=== PATIENT | female | born 1935 | race Caucasian/White ===

== ENCOUNTER 2017-01-29 07:34 | Emergency (ER) | payer OTHER ==
[~2017-01-29] VITALS: Ht 157.5 cm; Wt 50.0 kg
[2017-01-29 07:35] VITALS: BP 196/90; PULSE 80; RESP 18; TEMP 98.2; O2SAT 95
[2017-01-29 08:04] VITALS: RESP 16; O2SAT 96
[2017-01-29] MEDS ORDERED: SODIUM CHLORID 0.9% 500 ML INJ 500 ML IV ONE (08:15)
[2017-01-29] MEDS ORDERED: SODIUM CHLORIDE 0.9% FLUSH 10 ML FLUSH IVF PRN (08:15)
[2017-01-29 08:20] LABS: AUTOMATED NEUTROPHIL # 4.5 TH/MM3 (1.8-7.7); BASOPHIL # 0.1 TH/MM3 (0-0.2); BASOPHIL % 0.8 % (0.0-2.0); EOSINOPHIL # 0.2 TH/MM3 (0-0.4); EOSINOPHIL % 2.7 % (0.0-4.0); HEMATOCRIT 41.8 % (35.0-46.0); HEMOGLOBIN 14.7 GM/DL (11.6-15.3); LYMPH % 20.7 % (9.0-44.0); LYMPHOCYTE # 1.4 TH/MM3 (1.0-4.8); MEAN CELL VOLUME 103.8 FL (80.0-100.0); MEAN CORPUSCULAR HEMOGLOBIN 36.5 PG (27.0-34.0); MEAN CORPUSCULAR HGB CONC 35.2 % (32.0-36.0); MEAN PLATELET VOLUME 8.5 FL (7.0-11.0); MONO % 8.2 % (0.0-8.0); MONOCYTE # 0.6 TH/MM3 (0-0.9); NEUT % 67.6 % (16.0-70.0); PLATELET COUNT 376 TH/MM3 (150-450); RED BLOOD COUNT 4.03 MIL/MM3 (4.00-5.30); RED CELL DISTRIBUTION WIDTH 14.4 % (11.6-17.2); WHITE BLOOD COUNT 6.7 TH/MM3 (4.0-11.0)
[2017-01-29 08:31] LABS: INTERNATIONAL NORMALIZED RATIO 1.1 RATIO; PROTHROMBIN TIME - PATIENT 10.7 SEC (9.8-11.6)
--- NOTE | 2017-01-29 08:31 | RADRPT ---
EXAM DATE/TIME: 01/29/2017 08:10 [facility] COMPARISON: No previous studies available for comparison. INDICATIONS : Chest pain MEDICAL HISTORY : Carcinoma, colon. SURGICAL HISTORY : Colostomy. ENCOUNTER: Initial ACUITY: 1 day PAIN SCORE: 0/10 LOCATION: chest FINDINGS: There is a subtle small faint nodular density within the left upper lung field which is indeterminate . Outpatient CT of the chest may be helpful for further evaluation of this finding if clinically ginger cated. The heart is normal. The pulmonary vascular pattern is normal. The lungs are otherwise clear. Calcified breast implants are noted bilaterally. Mild degenerative changes are noted throughout the t horacic spine. CONCLUSION: 1. Subtle small faint nodular density within the left upper lung field which is indeterminate. Outpat ient CT of the chest may be helpful for further evaluation this finding if clinically indicated. 2. No acute infiltrate or pulmonary vascular congestion. 3. Mild degenerative changes throughout the thoracic spine. 1. Raj Mix MD on January 29, 2017 at 8:26 Board Certified Radiologist. This report was verified electronically.
[2017-01-29 08:37] LABS: ALT (GPT) 24 U/L (10-53); AST (GOT) 14 U/L (15-37); BICARBONATE 27.1 MEQ/L (21.0-32.0); BLOOD UREA NITROGEN 11 MG/DL (7-18); CALCIUM 8.4 MG/DL (8.5-10.1); CHLORIDE 108 MEQ/L (98-107); CREATININE 0.66 MG/DL (0.50-1.00); GLOMERULAR FILTRATION RATE 86 ML/MIN (>89); GLUCOSE,RANDOM 97 MG/DL (74-106); LIPASE 165 U/L (73-393); MAGNESIUM 2.2 MG/DL (1.5-2.5); SODIUM (NA) 141 MEQ/L (136-145)
[2017-01-29 08:38] VITALS: BP 133/62; PULSE 58; RESP 16; O2SAT 96
--- NOTE | 2017-01-29 08:39 | PD ---
HPI Chief Complaint: Chest Pain Time Seen by Provider: 07:53 Travel History International Travel<30 days: No Contact w/Intl Traveler<30days: No Traveled to known affect area: No History of Present Illness HPI Send 81-year-old woman presents emergent from complaining of chest pain. Symptoms started this morning about 7 AM. She describes sharp chest pain, persisting, but abated now. She was breathing hard when her son arrived to check on her. She still some nausea and dizziness now. No vomiting. No history of previous similar problems. No history of heart disease. Only history is remote history of colon cancer with a colostomy 30 years ago or so. History Past Medical History Narrative Medical Remote history of colon cancer, colostomy Tetanus Vaccination: > 5 Years Influenza Vaccination: No Menopausal: Yes : 4 Para: 4 Social History Alcohol Use: No Tobacco Use: Yes (1/2 pack per day) Allergies-Medications (Allergen,Severity, Reaction): Coded Allergies: No Known Allergies (Verified Allergy, Unknown, 01/29/17) Reported Meds & Prescriptions Reported Meds & Active Scripts Active No Active Prescriptions or Reported Medications Review of Systems Except as stated in HPI: all other systems reviewed are Neg Physical Exam Narrative GENERAL: Well-appearing 81-year-old woman, no acute distress. SKIN: Focused skin assessment warm/dry. HEAD: Atraumatic. Normocephalic. EYES: Pupils equal and round. No scleral icterus. No injection or drainage. ENT: No nasal bleeding or discharge. Mucous membranes pink and moist. NECK: Trachea midline. No JVD. CARDIOVASCULAR: Regular rate and rhythm. No murmur appreciated. RESPIRATORY: No accessory muscle use. Clear to auscultation. Breath sounds equal bilaterally. GASTROINTESTINAL: Abdomen is flat and soft. Colostomy in the lower abdomen. MUSCULOSKELETAL: No obvious deformities. No clubbing. No cyanosis. No edema. NEUROLOGICAL: Awake and alert. No obvious cranial nerve deficits. Motor grossly within normal limits. Normal speech. PSYCHIATRIC: Appropriate mood and affect; insight and judgment normal. Data Data Last Documented VS Vital Signs Date Time Temp Pulse Resp B/P (MAP) Pulse Ox O2 Delivery O2 Flow Rate FiO2 01/29/17 08:38 58 16 133/62 (85) 96 Room Air 01/29/17 07:35 98.2 Orders Orders Electrocardiogram (01/29/17 08:03) Complete Blood Count With Diff (12/17/17 08:03) Comprehensive Metabolic Panel (01/29/17 08:03) Magnesium (Mg) (01/29/17 08:03) Prothrombin Time / Inr (Pt) (01/29/17 08:03) Act Partial Throm Time (Ptt) (01/29/17 08:03) Troponin I (01/29/17 08:03) Lipase (01/29/17 08:03) Ecg Monitoring (01/29/17 08:03) Iv Access Insert/Monitor (01/29/17 08:03) Oximetry (01/29/17 08:03) Oxygen Administration (01/29/17 08:03) Sodium Chloride 0.9% Flush (Ns Flush) (01/29/17 08:15) Sodium Chlorid 0.9% 500 Ml Inj (Ns 500 M (01/29/17 08:15) Chest, Pa & Lat (01/29/17 08:03) Labs Laboratory Tests Test 01/29/17 08:05 White Blood Count 6.7 TH/MM3 Red Blood Count 4.03 MIL/MM3 Hemoglobin 14.7 GM/DL Hematocrit 41.8 % Mean Corpuscular Volume 103.8 FL Mean Corpuscular Hemoglobin 36.5 PG Mean Corpuscular Hemoglobin Concent 35.2 % Red Cell Distribution Width 14.4 % Platelet Count 376 TH/MM3 Mean Platelet Volume 8.5 FL Neutrophils (%) (Auto) 67.6 % Lymphocytes (%) (Auto) 20.7 % Monocytes (%) (Auto) 8.2 % Eosinophils (%) (Auto) 2.7 % Basophils (%) (Auto) 0.8 % Neutrophils # (Auto) 4.5 TH/MM3 Lymphocytes # (Auto) 1.4 TH/MM3 Monocytes # (Auto) 0.6 TH/MM3 Eosinophils # (Auto) 0.2 TH/MM3 Basophils # (Auto) 0.1 TH/MM3 CBC Comment DIFF FINAL Differential Comment Prothrombin Time 10.7 SEC Prothromb Time International Ratio 1.1 RATIO Activated Partial Thromboplast Time 26.3 SEC Blood Urea Nitrogen 11 MG/DL Creatinine 0.66 MG/DL Random Glucose 97 MG/DL Total Protein 7.3 GM/DL Albumin 4.0 GM/DL Calcium Level 8.4 MG/DL Magnesium Level 2.2 MG/DL Alkaline Phosphatase 67 U/L Aspartate Amino Transf (AST/SGOT) 14 U/L Alanine Aminotransferase (ALT/SGPT) 24 U/L Total Bilirubin 0.4 MG/DL Sodium Level 141 MEQ/L Potassium Level 3.7 MEQ/L Chloride Level 108 MEQ/L Carbon Dioxide Level 27.1 MEQ/L Anion Gap 6 MEQ/L Estimat Glomerular Filtration Rate 86 ML/MIN Troponin I LESS THAN 0.02 NG/ML Lipase 165 U/L MDM Medical Decision Making Medical Screen Exam Complete: Yes Emergency Medical Condition: Yes Interpretation(s) My review of EKG: Normal sinus rhythm at a rate of 65, normal axis, normal intervals, no definite evidence of acute ischemia. LABS: CBC is unremarkable. CMP is unremarkable. Troponin negative. Lipase is normal. UA is unremarkable. Differential Diagnosis ACS, PE, dissection, pneumonia, pneumothorax, other Narrative Course Medical decision making Well 81-year-old woman with chest pain times this morning. Otherwise doing completely well leading up to this. Chest pain gone now. Initial EKG without definite ischemia. We'll check labs, x-ray, likely admission to chest pain Center. No other symptoms to suggest dissection or PE. FINAL: 81-year-old woman with chest pain, moderate risk for ACS. Calculated her heart score major adverse cardiac events based on her heart score. Discussed with patient. Recommended chest pain Center for further evaluation. She does not want to stay. Her son is with her at the bedside. After discussion of the risks she states she will follow-up with a primary physician. Abnormal x-ray imaging was also discussed with her. She believes is a scarring from old pneumonia but will follow-up with her primary physician. Diagnosis Primary Impression: Chest pain Additional Instructions: Follow-up with a primary physician. U may need further imaging of the chest because of the small spot your left upper lung. Grossly further evaluation for your heart. He should return immediately to the emergency department for any recurrent chest pain, or any other new or worsening symptoms. Med/Other Pt SpecificInfo: No Change to Meds Scripts No Active Prescriptions or Reported Meds Disposition: 01 DISCHARGE HOME Condition: Stable Thaddeus Moon MD Jan 29, 2017 08:39
[2017-01-29 08:42] LABS: ALKALINE PHOSPHATASE 67 U/L (45-117); TOTAL BILIRUBIN ADULT 0.4 MG/DL (0.2-1.0); TOTAL PROTEIN 7.3 GM/DL (6.4-8.2); TROPONIN I LESS THAN 0.02 NG/ML (0.02-0.05)
[2017-01-29 09:10] VITALS: BP 130/76; TEMP 97.8
--- NOTE | 2017-01-30 16:31 | EKG ---
Date Performed: 01/29/2017 Time Performed: 07:49:08 PTAGE: 81 years EKG: Sinus rhythm POSSIBLE RIGHT VENTRICULAR CONDUCTION DELAY BORDERLINE ECG NO PREVIOUS TRACING DOCTOR: Michell De La Torre Interpretating Date/Time 01/30/2017 16:30:29
== END 2017-01-29 09:10 | disposition home or self-care (01) ==
LOC: NEPE 07:34
DX: R07.9 Chest pain, unspecified (principal); R11.0 Nausea; R42 Dizziness and giddiness; M51.34 Other intervertebral disc degeneration, thoracic region; F17.200 Nicotine dependence, unspecified, uncomplicated; Z85.038 Personal history of other malignant neoplasm of large intestine
CPT/HCPCS: 71020; 80053; 83690; 83735; 84484; 85025; 85610; 85730; 93005; 96360; 99285; J7040

== ENCOUNTER 2017-05-03 10:26 | Observation (INO) | payer OTHER ==
[2017-05-03] VITALS (7 sets, daily range): BP systolic 121–233; BP diastolic 63–110; PULSE 66–102; RESP 16–20; TEMP 96.5–97.8; O2SAT 93–98
[~2017-05-03] VITALS: Ht 157.5 cm; Wt 60.0 kg
[2017-05-03] MEDS ORDERED: SODIUM CHLORIDE 0.9% FLUSH 10 ML FLUSH IVF PRN (10:45)
[2017-05-03] MEDS ORDERED: DONE10TA7 PO (10:46)
[2017-05-03] MEDS ORDERED: IBUP1TAB5 PO (10:46)
[2017-05-03] MEDS ORDERED: LORA0.5T PO (10:46)
[2017-05-03] MEDS ORDERED: ONDANSETRON HCL 4 MG/2 ML VIAL ONE (10:49)
[2017-05-03] MEDS ORDERED: ASPIRIN 81 MG CHEW TAB CHEW ONE (11:00)
[2017-05-03] MEDS ORDERED: ONDANSETRON HCL 4 MG/2 ML VIAL IV PUSH ONE (11:00)
--- NOTE | 2017-05-03 11:03 | PD ---
HPI Chief Complaint: Chest Pain Time Seen by Provider: 10:43 Travel History International Travel<30 days: No Contact w/Intl Traveler<30days: No Traveled to known affect area: No History of Present Illness HPI Patient is an 82-year-old female presents emergency department for evaluation of chest tightness. Patient states it feels like 1000 pounds sitting in the middle of her chest. She states this started earlier today. The patient states that she has never had any heart problems that she knows of, no heart disease in the past. Patient initially denied any syncope to me. She did endorse some nausea without vomiting as well as some shortness of breath and dizziness. States the pain is moderate, associated sinus symptoms, context as above, duration as above PFSH Past Medical History Cancer: Yes (STAGE 4 COLON CA) Diminished Hearing: No Menopausal: Yes : 4 Para: 4 Past Surgical History Abdominal Surgery: Yes Hysterectomy: Yes Tonsillectomy: Yes Other Surgery: Yes (COLON SX / COLOSTOMY) Social History Alcohol Use: No Tobacco Use: Yes (3/4 pack per day) Substance Use: No Allergies-Medications (Allergen,Severity, Reaction): Coded Allergies: No Known Allergies (Verified Allergy, Unknown, 01/29/17) Reported Meds & Prescriptions Reported Meds & Active Scripts Active Reported Lorazepam 0.5 Mg Tab 0.5 Mg PO HS PRN Donepezil 10 Mg Tab 10 Mg PO HS Ibuprofen 400 Mg Tab 400 Mg PO TID Review of Systems Except as stated in HPI: all other systems reviewed are Neg Physical Exam Narrative GENERAL: Well-developed, well-nourished, no obvious distress per SKIN: Focused skin assessment warm/dry. HEAD: Atraumatic. Normocephalic. EYES: Pupils equal and round. No scleral icterus. No injection or drainage. ENT: No nasal bleeding or discharge. Mucous membranes pink and moist. NECK: Trachea midline. No JVD. CARDIOVASCULAR: Regular rate and rhythm. No murmur appreciated. 2+ bilateral equal pulses in all 4 extremities RESPIRATORY: No accessory muscle use. Clear to auscultation. Breath sounds equal bilaterally. GASTROINTESTINAL: Abdomen soft, non-tender, nondistended. Hepatic and splenic margins not palpable. MUSCULOSKELETAL: No obvious deformities. No clubbing. No cyanosis. No edema. NEUROLOGICAL: Awake and alert. No obvious cranial nerve deficits. Motor grossly within normal limits. Normal speech. PSYCHIATRIC: Appropriate mood and affect; insight and judgment normal. Data Data Last Documented VS Vital Signs Date Time Temp Pulse Resp B/P (MAP) Pulse Ox O2 Delivery O2 Flow Rate FiO2 05/03/17 12:00 68 20 157/71 (99) 97 Nasal Cannula 2.00 05/03/17 10:29 96.5 Orders Orders Electrocardiogram (05/03/17 ) B-Type Natriuretic Peptide (05/03/17 10:43) Complete Blood Count With Diff (05/03/17 10:43) Comprehensive Metabolic Panel (05/03/17 10:43) Magnesium (Mg) (05/03/17 10:43) Prothrombin Time / Inr (Pt) (05/03/17 10:43) Act Partial Throm Time (Ptt) (05/03/17 10:43) Troponin I (05/03/17 10:43) Chest, Single Ap (05/03/17 10:43) Ecg Monitoring (05/03/17 10:43) Iv Access Insert/Monitor (05/03/17 10:43) Oximetry (05/03/17 10:43) Oxygen Administration (05/03/17 10:43) Sodium Chloride 0.9% Flush (Ns Flush) (05/03/17 10:45) Ondansetron Inj (Zofran Inj) (05/03/17 10:49) Ondansetron Inj (Zofran Inj) (05/03/17 11:00) Aspirin Chew (Aspirin Chew) (05/03/17 11:00) Lipase (05/03/17 11:04) Nitroglycerin Sl (Nitrostat Sl) (05/03/17 11:15) Admit Order (Ed Use Only) (05/03/17 ) Labs Laboratory Tests Test 05/03/17 10:50 White Blood Count 10.4 TH/MM3 Red Blood Count 4.07 MIL/MM3 Hemoglobin 14.7 GM/DL Hematocrit 42.0 % Mean Corpuscular Volume 103.1 FL Mean Corpuscular Hemoglobin 36.2 PG Mean Corpuscular Hemoglobin Concent 35.1 % Red Cell Distribution Width 14.2 % Platelet Count 397 TH/MM3 Mean Platelet Volume 8.3 FL Neutrophils (%) (Auto) 82.7 % Lymphocytes (%) (Auto) 11.3 % Monocytes (%) (Auto) 4.6 % Eosinophils (%) (Auto) 0.7 % Basophils (%) (Auto) 0.7 % Neutrophils # (Auto) 8.6 TH/MM3 Lymphocytes # (Auto) 1.2 TH/MM3 Monocytes # (Auto) 0.5 TH/MM3 Eosinophils # (Auto) 0.1 TH/MM3 Basophils # (Auto) 0.1 TH/MM3 CBC Comment DIFF FINAL Differential Comment Prothrombin Time 10.0 SEC Prothromb Time International Ratio 1.0 RATIO Activated Partial Thromboplast Time 23.5 SEC Blood Urea Nitrogen 14 MG/DL Creatinine 0.67 MG/DL Random Glucose 137 MG/DL Total Protein 7.9 GM/DL Albumin 4.2 GM/DL Calcium Level 8.9 MG/DL Magnesium Level 2.1 MG/DL Alkaline Phosphatase 89 U/L Aspartate Amino Transf (AST/SGOT) 27 U/L Alanine Aminotransferase (ALT/SGPT) 26 U/L Total Bilirubin 0.5 MG/DL Sodium Level 137 MEQ/L Potassium Level 3.7 MEQ/L Chloride Level 104 MEQ/L Carbon Dioxide Level 22.6 MEQ/L Anion Gap 10 MEQ/L Estimat Glomerular Filtration Rate 84 ML/MIN Troponin I LESS THAN 0.02 NG/ML B-Type Natriuretic Peptide 40 PG/ML Lipase 172 U/L MDM Medical Decision Making Medical Screen Exam Complete: Yes Emergency Medical Condition: Yes Differential Diagnosis ACS, GA, pneumonia, Narrative Course Patient room to the emergency department, after nitroglycerin the patient symptoms had resolved, and reassessment she is sleeping soundly and in no obvious distress. Patient was initially put in for the chest pain center, she was moved to the chest pain center where chest pain center staff saw her at which time she is now claiming that she had a syncopal episode last night. [facility] has asked me to reevaluate the patient and she does indeed endorse a syncopal episode now. Given that she has had a syncopal episode I have asked them to upgrade the patient to [facility], I discussed the patient with Dr. Esqueda who will assume care peer Diagnosis Primary Impression: Chest pain Admitting Information Admitting Physician Requests: Observation Condition: Stable Raj Wheeler MD May 03, 2017 11:03
[2017-05-03 11:07] LABS: AUTOMATED NEUTROPHIL # 8.6 TH/MM3 (1.8-7.7); BASOPHIL # 0.1 TH/MM3 (0-0.2); BASOPHIL % 0.7 % (0.0-2.0); EOSINOPHIL # 0.1 TH/MM3 (0-0.4); EOSINOPHIL % 0.7 % (0.0-4.0); HEMOGLOBIN 14.7 GM/DL (11.6-15.3); LYMPH % 11.3 % (9.0-44.0); LYMPHOCYTE # 1.2 TH/MM3 (1.0-4.8); MEAN CELL VOLUME 103.1 FL (80.0-100.0); MEAN CORPUSCULAR HEMOGLOBIN 36.2 PG (27.0-34.0); MEAN CORPUSCULAR HGB CONC 35.1 % (32.0-36.0); MEAN PLATELET VOLUME 8.3 FL (7.0-11.0); MONO % 4.6 % (0.0-8.0); MONOCYTE # 0.5 TH/MM3 (0-0.9); NEUT % 82.7 % (16.0-70.0); PLATELET COUNT 397 TH/MM3 (150-450); RED BLOOD COUNT 4.07 MIL/MM3 (4.00-5.30); RED CELL DISTRIBUTION WIDTH 14.2 % (11.6-17.2); WHITE BLOOD COUNT 10.4 TH/MM3 (4.0-11.0)
[2017-05-03] MEDS ORDERED: NITROGLYCERIN 0.4 MG SL 25 TABS/BTL SL ONE (11:15)
[2017-05-03 11:29] LABS: ALT (GPT) 26 U/L (10-53)
--- NOTE | 2017-05-03 11:31 | RADRPT ---
EXAM DATE/TIME: 05/03/2017 10:52 [facility] COMPARISON: CHEST PA & LAT, January 29, 2017, 8:10. INDICATIONS : Chest pain. Patient complains of nausea and vomiting. MEDICAL HISTORY : Carcinoma, colon. SURGICAL HISTORY : Colostomy. ENCOUNTER: Initial ACUITY: 1 day PAIN SCORE: 0/10 LOCATION: Bilateral chest FINDINGS: A single view of the chest demonstrates the lungs to be symmetrically aerated without evidence of mas s, infiltrate or effusion. The cardiomediastinal contours are unremarkable. Remainder of the exam is unchanged. CONCLUSION: 1. No acute cardiopulmonary disease. Josh Ortega MD on May 03, 2017 at 11:28 Board Certified Radiologist. This report was verified electronically.
[2017-05-03 11:33] LABS: ALKALINE PHOSPHATASE 89 U/L (45-117); TOTAL BILIRUBIN ADULT 0.5 MG/DL (0.2-1.0); TOTAL PROTEIN 7.9 GM/DL (6.4-8.2); TROPONIN I LESS THAN 0.02 NG/ML (0.02-0.05)
[2017-05-03 11:35] LABS: ALBUMIN 4.2 GM/DL (3.4-5.0); AST (GOT) 27 U/L (15-37); BICARBONATE 22.6 MEQ/L (21.0-32.0); BLOOD UREA NITROGEN 14 MG/DL (7-18); CALCIUM 8.9 MG/DL (8.5-10.1); CHLORIDE 104 MEQ/L (98-107); CREATININE 0.67 MG/DL (0.50-1.00); GLOMERULAR FILTRATION RATE 84 ML/MIN (>89); GLUCOSE,RANDOM 137 MG/DL (74-106); MAGNESIUM 2.1 MG/DL (1.5-2.5); SODIUM (NA) 137 MEQ/L (136-145)
--- NOTE | 2017-05-03 14:20 | EKG ---
Date Performed: 05/03/2017 Time Performed: 10:45:49 PTAGE: 82 years EKG: Sinus rhythm POSSIBLE LEFT ATRIAL ENLARGEMENT POSSIBLE RIGHT VENTRICULAR CONDUCTION DELAY BORDERLINE ECG No signi ficant change from prior electrocardiogram. PREVIOUS TRACING : 01/29/2017 07.49 DOCTOR: Elvis Reyes Interpretating Date/Time 05/03/2017 14:19:06
--- NOTE | 2017-05-03 15:35 | HHI.HP ---
[facility] Primary Care Physician Admission Diagnosis Chest Tightness Diagnoses: Chief Complaint: Chest pain, lightheadedness, elevated blood pressure Travel History International Travel<30 Days: No Contact w/Intl Traveler <30 Da: No Traveled to Known Affected Are: No History of Present Illness The patient is a very pleasantly confused 82-year-old female past medical history of colon cancer with resection and colostomy 30 years ago. Son at bedside also providing history. The patient came to the emergency room brought in by her son after he is concerned of patient having high blood pressure systolic blood pressure was 200 at home taken by his who is a nurse. The patient complained of chest pain most likely like pressure intermittent says she never had these pressure before. Associated shortness of breath, nausea and lightheadedness. Patient said she did not fall, however felt dizzy and near fall. Says she never had these symptoms before. No headaches, no motor deficit. No loss of consciousness. No nausea or vomiting no diarrhea or constipation. No diaphoresis, palpitations. Denies vomiting, constipation. No trouble with urination. Denies cough, fever or chills. Review of Systems Except as stated in HPI: all other systems reviewed are Neg Past Family Social History Past Medical History ca colon stage 4 with colectomy and colostomy dementia Past Surgical History colon resection Reported Medications Reported Meds & Active Scripts Active Reported Lorazepam 0.5 Mg Tab 0.5 Mg PO HS PRN Donepezil 10 Mg Tab 10 Mg PO HS Ibuprofen 400 Mg Tab 400 Mg PO TID Allergies: Coded Allergies: No Known Allergies (Verified Allergy, Unknown, 01/29/17) Family History Cancer colorectal runs in family her mother side No cardiac problems in family Social History Tobacco use 1/4 ppd since 17 ya Etoh denies , occasionally wine No illicit drug use Physical Exam Vital Signs Vital Signs Date Time Temp Pulse Resp B/P (MAP) Pulse Ox O2 Delivery O2 Flow Rate FiO2 05/03/17 14:00 97.4 69 16 121/63 (82) 97 05/03/17 13:25 05/03/17 12:00 68 20 157/71 (99) 97 Nasal Cannula 2.00 05/03/17 10:54 81 20 182/87 (118) 97 Nasal Cannula 2.00 05/03/17 10:40 86 17 Room Air 05/03/17 10:40 99 Nasal Cannula 2.00 05/03/17 10:29 96.5 102 20 233/110 (151) 98 Physical Exam GENERAL: This is a well-nourished, well-developed patient, in no apparent distress. SKIN: No rashes, ecchymoses or lesions. Cool and dry. HEAD: Atraumatic. Normocephalic. No temporal or scalp tenderness. EYES: Pupils equal round and reactive. Extraocular motions intact. No scleral icterus. No injection or drainage. ENT: Nose without bleeding, purulent drainage or septal hematoma. Throat without erythema, tonsillar hypertrophy or exudate. Uvula midline. Airway patent. NECK: Trachea midline. No JVD or lymphadenopathy. Supple, nontender, no meningeal signs. CARDIOVASCULAR: Regular rate and rhythm without murmurs, gallops, or rubs. RESPIRATORY: Clear to auscultation. Breath sounds equal bilaterally. No wheezes , rales, or rhonchi. GASTROINTESTINAL: Abdomen soft, non-tender, nondistended. Colostomy in place. No hepato-splenomegaly, or palpable masses. No guarding. MUSCULOSKELETAL: Extremities without clubbing, cyanosis, or edema. No joint tenderness, effusion, or edema noted. No calf tenderness. Negative Homans sign bilaterally. NEUROLOGICAL: Awake and alert. Cranial nerves II through XII intact. Motor and sensory grossly within normal limits. Five out of 5 muscle strength in all muscle groups. Normal speech. Laboratory Laboratory Tests Test 05/03/17 10:50 White Blood Count 10.4 Red Blood Count 4.07 Hemoglobin 14.7 Hematocrit 42.0 Mean Corpuscular Volume 103.1 Mean Corpuscular Hemoglobin 36.2 Mean Corpuscular Hemoglobin Concent 35.1 Red Cell Distribution Width 14.2 Platelet Count 397 Mean Platelet Volume 8.3 Neutrophils (%) (Auto) 82.7 Lymphocytes (%) (Auto) 11.3 Monocytes (%) (Auto) 4.6 Eosinophils (%) (Auto) 0.7 Basophils (%) (Auto) 0.7 Neutrophils # (Auto) 8.6 Lymphocytes # (Auto) 1.2 Monocytes # (Auto) 0.5 Eosinophils # (Auto) 0.1 Basophils # (Auto) 0.1 CBC Comment DIFF FINAL Differential Comment Prothrombin Time 10.0 Prothromb Time International Ratio 1.0 Activated Partial Thromboplast Time 23.5 Blood Urea Nitrogen 14 Creatinine 0.67 Random Glucose 137 Total Protein 7.9 Albumin 4.2 Calcium Level 8.9 Magnesium Level 2.1 Alkaline Phosphatase 89 Aspartate Amino Transf (AST/SGOT) 27 Alanine Aminotransferase (ALT/SGPT) 26 Total Bilirubin 0.5 Sodium Level 137 Potassium Level 3.7 Chloride Level 104 Carbon Dioxide Level 22.6 Anion Gap 10 Estimat Glomerular Filtration Rate 84 Troponin I LESS THAN 0.02 B-Type Natriuretic Peptide 40 Lipase 172 Result Diagram: 05/03/17 1050 05/03/17 1050 Imaging Last Impressions Chest X-Ray 05/03/17 1043 Signed Impressions: Service Date/Time: Wednesday, May 03, 2017 10:52 - CONCLUSION: 1. No acute cardiopulmonary disease. Josh Ortega MD Capprince VTE Risk Assessment Caprini VTE Risk Assessment: Mod/High Risk (score >= 2) Caprini Risk Assessment Model Point Value = 1 Point Value = 2 Point Value = 3 Point Value = 5 Age 41-60 Minor surgery BMI > 25 kg/m2 Swollen legs Varicose veins or History of unexplained or recurrent spontaneous Oral contraceptives or hormone replacement Sepsis (< 1 month) Serious lung disease, including pneumonia (< 1 month) Abnormal pulmonary function Acute myocardial infarction Congestive heart failure (< 1 month) History of inflammatory bowel disease Medical patient at bed rest Age 61-74 Arthroscopic surgery Major open surgery (> 45 min) Laparoscopic surgery (> 45 min) Malignancy Confined to bed (> 72 hours) Immobilizing plaster cast Central venous access Age >= 75 History of VTE Family history of VTE Factor V Leiden Prothrombin [id number] Lupus anticoagulant Anticardiolipin antibodies Elevated serum homocysteine Heparin-induced thrombocytopenia Other congenital or acquired thrombophilia Stroke (< 1 month) Elective arthroplasty Hip, pelvis, or leg fracture Acute spinal cord injury (< 1 month) Prophylaxis Regimen Total Risk Factor Score Risk Level Prophylaxis Regimen 0-1 Low Early ambulation 2 Moderate Order ONE of the following: *Sequential Compression Device (SCD) *Heparin 5000 units SQ BID 3-4 Higher Order ONE of the following medications: *Heparin 5000 units SQ TID *Enoxaparin/Lovenox 40 mg SQ daily (WT < 150 kg, CrCl > 30 mL/min) *Enoxaparin/Lovenox 30 mg SQ daily (WT < 150 kg, CrCl > 10-29 mL/min) *Enoxaparin/Lovenox 30 mg SQ BID (WT < 150 kg, CrCl > 30 mL/min) AND/OR *Sequential Compression Device (SCD) 5 or more Highest Order ONE of the following medications: *Heparin 5000 units SQ TID (Preferred with Epidurals) *Enoxaparin/Lovenox 40 mg SQ daily (WT < 150 kg, CrCl > 30 mL/min) *Enoxaparin/Lovenox 30 mg SQ daily (WT < 150 kg, CrCl > 10-29 mL/min) *Enoxaparin/Lovenox 30 mg SQ BID (WT < 150 kg, CrCl > 30 mL/min) AND *Sequential Compression Device (SCD) Assessment and Plan Assessment and Plan 82-year-old female with Syncope Hypertension uncontrolled/hypertensive urgency. Per patient she does not have a history of high blood pressure and she is not taking any medications however admission blood pressure of 233/110 Chest pain First troponin negative, repeat troponins. EKG also reviewed no acute changes. May consider stress test if troponins are negative Monitor on telemetry Neurochecks Vasotec as needed elevated blood pressure. Start lisinopril 5 mg p.o. daily. Monitor blood pressure and adjust medications as needed Plan for CT scan of the head , 2D echo, carotid ultrasound Morphine IV as needed if chest pain recurs History of colon cancer with colon resection and colostomy. Stable at this time. DVT prophylaxis SCDs/teds/Lovenox Discussed with the patient, nurse, patient son at bedside, ED physician Yusef Gutierrez from chest pain center Macey Asher MD May 03, 2017 15:35
[2017-05-03] MEDS ORDERED: ACETAMINOPHEN 325 MG TAB PO PRN (15:45)
[2017-05-03] MEDS ORDERED: LACTULOSE SYRUP 20 GM/30 ML CUP PO PRN (15:45)
[2017-05-03] MEDS ORDERED: SODIUM CHLORIDE 0.9% FLUSH 10 ML FLUSH IV FLUSH PRN (15:45)
[2017-05-03] MEDS ORDERED: NALOXONE HCL 0.4 MG/ML AMP IV PUSH PRN (15:45)
[2017-05-03] MEDS ORDERED: SENNOSIDES 8.6 MG TAB PO PRN (15:45)
[2017-05-03] MEDS ORDERED: BISACODYL 10 MG SUPP RECTAL PRN (15:45)
[2017-05-03] MEDS ORDERED: MAGNESIUM HYDROXIDE SUSP 30 ML CUP PO PRN (15:45)
[2017-05-03] MEDS ORDERED: ONDANSETRON HCL 4 MG/2 ML VIAL IVP PRN (15:45)
[2017-05-03] MEDS ORDERED: ENOXAPARIN SODIUM 40 MG/0.4 ML SYRINGE SQ SCH (16:00)
--- NOTE | 2017-05-03 16:53 | RADRPT ---
EXAM DATE/TIME: 05/03/2017 16:40 [facility] COMPARISON: No previous studies available for comparison. INDICATIONS : Syncope RADIATION DOSE: 34.87 CTDIvol (mGy) MEDICAL HISTORY : Carcinoma, colon. SURGICAL HISTORY : Hysterectomy. Colon resection.Colostomy. ENCOUNTER: Initial ACUITY: 1 day PAIN SCALE: 8/10 LOCATION: cranial TECHNIQUE: Multiple contiguous axial images were obtained of the head. Using automated exposure control and adj ustment of the mA and/or kV according to patient size, radiation dose was kept as low as reasonably a chievable to obtain optimal diagnostic quality images. DICOM format image data is available electro nically for review and comparison. FINDINGS: CEREBRUM: The ventricles are normal for age. No evidence of midline shift, mass lesion, hemorrhage or acute in farction. No extra-axial fluid collections are seen. POSTERIOR FOSSA: The cerebellum and brainstem are intact. The 4th ventricle is midline. The cerebellopontine angle i s unremarkable. EXTRACRANIAL: The visualized portion of the orbits is intact. SKULL: The calvaria is intact. No evidence of skull fracture. CONCLUSION: Negative for an acute process. Joby Roque MD FACR on May 03, 2017 at 16:50 Board Certified Radiologist. This report was verified electronically.
--- NOTE | 2017-05-03 16:55 | RADRPT ---
EXAM DATE/TIME: 05/03/2017 15:52 [place] COMPARISON: No previous studies available for comparison. INDICATIONS : Syncope. MEDICAL HISTORY : Colon cancer. SURGICAL HISTORY : Hysterectomy. Tonsillectomy. Colostomy. ENCOUNTER: Initial ACUITY: 1 day PAIN SCORE: 0/10 LOCATION: Bilateral neck PEAK SYSTOLIC VELOCITIES (cm/sec): ICA/CCA RATIO: Right: 2.4 Left: 2.1 ICA: Right: 140 Left: 154 CCA: Right: 59 Left: 73 ECA: Right: 119 Left: 206 VERTEBRAL: Right: 87 antegrade Left: 89 retrograde Elevated flow velocities and ICA/CCA ratios have been found to correlate with increased degrees of vessel stenosis, calculated as percentage of diameter relative to a normal segment of distal ICA/CCA FINDINGS: RIGHT CAROTID: Hemodynamically significant stenosis on the right by ratios. Moderate calcific plaque. LEFT CAROTID: Borderline significant stenosis on the left by ratios. Moderate calcific plaque. VERTEBRAL ARTERIES: Antegrade flow is seen in both vertebral arteries. MISCELLANEOUS: None. CONCLUSION: Calcific vascular disease. Stenosis on the right is probably hemodynamically signifi cant. Left is borderline. CT angiography or MR angiography would be of benefit to confirm. Joby Roque MD FACR on May 03, 2017 at 16:51 Board Certified Radiologist. This report was verified electronically.
[2017-05-03] MEDS: SODIUM CHLOR 0.9% 1000 ML INJ 1,000 ML IV SCH (17:24)
[2017-05-03] MEDS: DOCUSATE SODIUM 50 MG/SENNA 8.6 MG TAB PO SCH (20:41)
[2017-05-03] MEDS: SODIUM CHLORIDE 0.9% FLUSH 10 ML FLUSH IV FLUSH SCH (20:41)
--- NOTE | 2017-05-03 21:43 | EKG ---
Date Performed: 05/03/2017 Time Performed: 18:24:19 PTAGE: 82 years EKG: Sinus rhythm POSSIBLE RIGHT VENTRICULAR CONDUCTION DELAY BORDERLINE ECG No significant change from prior electroc ardiogram. PREVIOUS TRACING : 05/03/2017 10.45 DOCTOR: Elvis Reyes Interpretating Date/Time 05/03/2017 21:42:33
[2017-05-03] MEDS ORDERED: diphenhydrAMINE HCL 50 MG CAP PO ONE (23:15)
[2017-05-04 01:00] VITALS: BP 199/122; PULSE 69; RESP 18; TEMP 98.7; O2SAT 99
[2017-05-04 02:00] VITALS: BP 168/95
[2017-05-04] MEDS ORDERED: HALOPERIDOL LACTATE 5 MG/ML AMP IM ONE (02:45)
[2017-05-04 07:31] LABS: AUTOMATED NEUTROPHIL # 5.8 TH/MM3 (1.8-7.7); BASOPHIL % 0.4 % (0.0-2.0); EOSINOPHIL # 0.1 TH/MM3 (0-0.4); HEMATOCRIT 39.4 % (35.0-46.0); HEMOGLOBIN 13.7 GM/DL (11.6-15.3); LYMPH % 15.5 % (9.0-44.0); LYMPHOCYTE # 1.2 TH/MM3 (1.0-4.8); MEAN CORPUSCULAR HEMOGLOBIN 36.1 PG (27.0-34.0); MEAN CORPUSCULAR HGB CONC 34.7 % (32.0-36.0); MEAN PLATELET VOLUME 8.4 FL (7.0-11.0); MONO % 6.9 % (0.0-8.0); MONOCYTE # 0.5 TH/MM3 (0-0.9); NEUT % 76.2 % (16.0-70.0); PLATELET COUNT 360 TH/MM3 (150-450); RED BLOOD COUNT 3.78 MIL/MM3 (4.00-5.30); RED CELL DISTRIBUTION WIDTH 14.1 % (11.6-17.2); WHITE BLOOD COUNT 7.6 TH/MM3 (4.0-11.0)
[2017-05-04 07:59] LABS: BICARBONATE 29.5 MEQ/L (21.0-32.0); CALCIUM 8.7 MG/DL (8.5-10.1); CREATININE 0.64 MG/DL (0.50-1.00)
[2017-05-04 08:35] VITALS: BP_SYST 194; BP_SYST 213; BP_SYST 232; BP_DIAS 100; BP_DIAS 92; BP_DIAS 97; PULSE 77; RESP 18; TEMP 98.2; O2SAT 96
[2017-05-04] MEDS: SODIUM CHLOR 0.9% 1000 ML INJ 1,000 ML IV SCH ×2 (09:25→10:38)
[2017-05-04] MEDS ORDERED: ENALAPRILAT 1.25 MG/ML VIAL IV PUSH PRN (09:30)
[2017-05-04] MEDS: DOCUSATE SODIUM 50 MG/SENNA 8.6 MG TAB PO SCH (09:42)
[2017-05-04] MEDS: SODIUM CHLORIDE 0.9% FLUSH 10 ML FLUSH IV FLUSH SCH (09:42)
--- NOTE | 2017-05-04 09:54 | HHI.PR ---
Subjective Remarks Pt denies any chest pain, dizziness, lightheadedness or sob. Pt denies any n/v. Pt denies any hx of syncopal episode, very upset that "our staff" kept diagnosing her with this. She tells me that what she came in for was for chest tightness and HTN. admits to mild dizziness at the time which has now resolved. Objective Vitals Vital Signs Date Time Temp Pulse Resp B/P (MAP) Pulse Ox O2 Delivery O2 Flow Rate FiO2 05/04/17 08:35 98.2 77 18 194/92 (126) 96 232/100 (144) 213/97 (135) 05/04/17 02:00 168/95 (119) 05/04/17 01:00 98.7 69 18 199/122 (147) 99 05/03/17 21:14 97.8 74 16 197/106 (136) 98 05/03/17 21:12 21 05/03/17 18:00 69 05/03/17 16:30 97.5 66 18 153/70 (97) 93 05/03/17 14:00 97.4 69 16 121/63 (82) 97 05/03/17 13:25 05/03/17 12:00 68 20 157/71 (99) 97 Nasal Cannula 2.00 05/03/17 10:54 81 20 182/87 (118) 97 Nasal Cannula 2.00 05/03/17 10:40 86 17 Room Air 05/03/17 10:40 99 Nasal Cannula 2.00 05/03/17 10:29 96.5 102 20 233/110 (151) 98 I/O 05/03/17 05/03/17 05/03/17 05/04/17 05/04/17 05/04/17 07:00 15:00 23:00 07:00 15:00 23:00 Intake Total 500 ml Output Total 800 ml Balance -300 ml Intake Oral 500 ml Output Urine Total 800 ml # Voids 2 Result Diagram: 05/04/17 0647 05/04/17 0647 Imaging Last Impressions Chest X-Ray 05/03/17 1043 Signed Impressions: Service Date/Time: Wednesday, May 03, 2017 10:52 - CONCLUSION: 1. No acute cardiopulmonary disease. Josh Ortega MD Head CT 05/03/17 0000 Signed Impressions: Service Date/Time: Wednesday, May 03, 2017 16:40 - CONCLUSION: Negative for an acute process. Joby Roque MD FACR Carotid Artery Ultrasound 05/03/17 0000 Signed Impressions: Service Date/Time: Wednesday, May 03, 2017 15:52 - CONCLUSION: Calcific vascular disease. Stenosis on the right is probably hemodynamically significant. Left is borderline. CT angiography or MR angiography would be of benefit to confirm. Joby Roque MD FACR Objective Remarks GENERAL: frustrated, sitting up in bed EYES: Extraocular motions intact. ENT: Nose without drainage NECK: Trachea midline. CARDIOVASCULAR: Regular rate and rhythm without murmurs RESPIRATORY: Clear to auscultation. Breath sounds equal bilaterally. No wheezes GASTROINTESTINAL: Abdomen soft, non-tender, nondistended. Colostomy in place. MUSCULOSKELETAL: Extremities without edema. NEUROLOGICAL: Awake and alert. Cranial nerves II through XII intact. Motor and sensory grossly within normal limits. Normal speech. A/P Assessment and Plan Syncope- which per pt today, never happened. Son confirms this as well. u/s showed stenosis on the right which could be hemodynamically significant. After discussion w patient, she refuses CTA neck (this has been cancelled). She wants to pursue this as an outpatient. I did explain the reason it was ordered. Pt refuses to remain in the hospital for further treatment for this. She has a PCP and states that she can be worked up as an outpatient. Pt has no dizziness or lightheadedness. Feels well other than being frustrated w the care she received here thus far. Hypertension uncontrolled/hypertensive urgency. Per pt she used to be on BP meds but doesn't remember the name, hasn't taken it for a very long time. Pt wants her meds and "then get out of here". Pt states she has a PCP she can follow up with and also her daughter in law is a nurse who can monitor it for her. Pt started on amlodipine 10mg daily w vasotec prn. Discussed w RN, pt refused any IV line placements. Chest pain- resolved. Trop neg x 3. Pt refuses further work up and states it was most likely due to her high blood pressure. wants to f/u w PCP. History of colon cancer with colon resection and colostomy. Stable at this time. PT evaluated the pt and pt refused their services and denies any fall/near fall episode. DVT prophylaxis SCDs/teds/Lovenox Discharge Planning repeat BP in 1-2 hours and if improved, d/c home w f/u w PCP as an outpatient. Sandra Dixon MD May 04, 2017 09:54
[2017-05-04] MEDS ORDERED: AMLO10 PO (09:56)
[2017-05-04] MEDS ORDERED: LORazepam 0.5 MG TAB PO PRN (10:15)
[2017-05-04 11:08] VITALS: BP 121/61; PULSE 80
--- NOTE | 2017-05-04 12:12 | HHI.DCPOC ---
Discharge Care Plan Diagnosis: (1) Chest pain (2) Hypertension, uncontrolled Additional Problems Please follow up with PCP within 3-5days. Take Blood Pressure log every morning at home and record findings to report to PCP. Your Carotid Ultrasound was abnormal and highly recommend outpatient CTA of the neck/carotids for further evaluation. Echocardiogram is also recommended to be done as outpatient. Goals to Promote Your Health * To prevent worsening of your condition and complications * To maintain your health at the optimal level Directions to Meet Your Goals Take your medications as prescribed Follow your dietary instruction Follow activity as directed Keep your appointments as scheduled Take your immunizations and boosters as scheduled If your symptoms worsen call your PCP, if no PCP go to Urgent Care Center or Emergency Room Smoking is Dangerous to Your Health. Avoid second hand smoke Call the 24-hour hour crisis hotline for domestic abuse at Darling Fisher PA-C May 04, 2017 12:12 pm
== END 2017-05-04 14:18 | disposition home or self-care (01) ==
LOC: NEPC 10:26 → NEDA 12:16 → NEPGCP 13:10
PROVIDERS: ADMIT Hospitalist; ATTEND Hospitalist
DX: R55 Syncope and collapse (principal); I16.0 Hypertensive urgency; I10 Essential (primary) hypertension; R06.02 Shortness of breath; R11.0 Nausea; R42 Dizziness and giddiness; F03.90 Unspecified dementia, unspecified severity, without behavioral disturbance, psychotic disturbance, mood disturbance, and anxiety; F17.200 Nicotine dependence, unspecified, uncomplicated; Z79.899 Other long term (current) drug therapy; Z93.3 Colostomy status; Z85.038 Personal history of other malignant neoplasm of large intestine
CPT/HCPCS: 70450; 71045; 80048; 80053; 83690; 83735; 83880; 84484; 85025; 85610; 85730; 92610; 93005; 93880; 96361; 96374; 96376; 99285; G0378; G8996; G8997; G8998; J1650; J2405; J7030